=== PATIENT | female | born 1935 | race African-American/Black ===

== ENCOUNTER 2016-12-25 08:21 | Day surgery (SDC) | payer MEDICARE, OTHER ==
[2016-12-25] VITALS (12 sets, daily range): BP systolic 141–203; BP diastolic 64–88; PULSE 49–64; TEMP 96.8
[~2016-12-25] VITALS: Ht 162.6 cm; Wt 103.0 kg
[~2016-12-25 08:21] MED LIST: ALDACTONE 25MG25 M1 PO; BENICAR40 MG PO; BYSTOLIC20 MG PO; HYDRALAZINE HC100 MG PO; NORCO 325 MG-51 TAB PO; PRAVACHOL 40MG40 MG PO; PRILOSEC 20MG20 MG PO; VITAMIN B121000 MC2 PO; VITAMIN B610 MG PO
[2016-12-25 08:56] LABS: HEMATOCRIT 49.2 % (37.0-47.0); HEMOGLOBIN 15.8 g/dl (12.5-16.0); MEAN CELL VOLUME 89 fl (80.0-100.0); MEAN CORPUSCULAR HEMOGLOBIN 29 pg (27.0-31.0); MEAN CORPUSCULAR HGB CONC 32 g/dl (33.0-37.0); MEAN PLATELET VOLUME 10.5 fl (7.4-10.4); PLATELET COUNT 241 K/mm3 (130-400); RED BLOOD COUNT 5.55 M/mm3 (4.10-5.30); REDCELL DISTRIBUTION WIDTH-CV 14.8 % (11.5-14.5); WHITE BLOOD COUNT 9.9 K/mm3 (4.8-10.8)
[2016-12-25 08:59] LABS: CALCIUM 10.3 mg/dL (8.4-10.2); CREATININE, serum 0.97 mg/dL (0.52-1.25); POTASSIUM 3.7 mmol/L (3.4-5.0)
[2016-12-25] MEDS ORDERED: ZYLOPRIM 300MG300 MG PO (08:59)
[2016-12-25] MEDS ORDERED: CATAPRES-TTS 20.2 M1 TD (09:00)
[2016-12-25] MEDS ORDERED: COLCRYS0.6 MG PO (09:01)
[2016-12-25 09:02] LABS: INR 1.1 (0.8-3.0); PROTHROMBIN TIME 12.7 SECONDS (9.7-12.8)
[2016-12-25] MEDS ORDERED: TOPROL XL100 MG PO (09:02)
[2016-12-25] MEDS ORDERED: MIRALAX PA17 GM/Dose PO (09:03)
[2016-12-25] MEDS ORDERED: ALDACTONE 25MG25 M1 PO (09:04)
[2016-12-25] MEDS ORDERED: ERGOCALCIFER50000 IU PO (09:06)
[2016-12-25] MEDS ORDERED: ASPIRIN 81M81 MG/TA2 PO (09:07)
[2016-12-25] MEDS ORDERED: NORVASC 10MG10 MG PO (14:51)
== END 2016-12-25 16:52 | disposition home or self-care (01) ==
LOC: EUO 08:21
PROVIDERS: Internal Medicine Cardiovascular Disease
DX: I25.10 Atherosclerotic heart disease of native coronary artery without angina pectoris (principal); I08.3 Combined rheumatic disorders of mitral, aortic and tricuspid valves; I27.2 Other secondary pulmonary hypertension; R94.39 Abnormal result of other cardiovascular function study; R07.89 Other chest pain; E78.5 Hyperlipidemia, unspecified; K21.9 Gastro-esophageal reflux disease without esophagitis; M10.9 Gout, unspecified; I10 Essential (primary) hypertension; G47.33 Obstructive sleep apnea (adult) (pediatric); K58.9 Irritable bowel syndrome, unspecified; Z86.718 Personal history of other venous thrombosis and embolism; M19.90 Unspecified osteoarthritis, unspecified site; Z79.899 Other long term (current) drug therapy
CPT/HCPCS: C1760; J2250; J3010; Q9967

== ENCOUNTER → 2017-01-31 | Outpatient (CLI) | payer MEDICARE, OTHER ==
[~2017-01-31] MED LIST changes: +ASPIRIN 81M81 MG/TA2 PO; +BACTRIM DS 8001 TAB PO; +CATAPRES-TTS 20.2 M1 TD; +CEPHALEXIN500 M1 PO; +COLCRYS0.6 MG PO; +DOXYCYCLINE HY100 MG PO; +ELIQUIS 2.5 PO; +ERGOCALCIFER50000 IU PO; +LOTRISONE 0.05%1 CRE TOP; +MIRALAX PA17 GM/Dose PO; +NORVASC 10MG10 MG PO; +TOPROL XL100 MG PO; +TOPROL XL200 MG PO; +TRIAMCINOLONE A15 G3 TP; +ZYLOPRIM 300MG300 MG PO
== END ==
LOC: COL.RAD 08:53
DX: I51.7 Cardiomegaly (principal); R06.02 Shortness of breath
CPT/HCPCS: A9539; A9540

== ENCOUNTER → 2017-02-06 | Outpatient (CLI) | payer MEDICARE, OTHER | LOC: COL.PUL 08:00 | DX: R06.02 Shortness of breath (principal) ==

== ENCOUNTER 2017-02-23 21:41 | Emergency (ER) | payer MEDICARE, OTHER ==
[~2017-02-23] VITALS: Ht 160 cm; Wt 100.0 kg
[~2017-02-23 21:41] MED LIST changes: -BACTRIM DS 8001 TAB PO; -CEPHALEXIN500 M1 PO; -DOXYCYCLINE HY100 MG PO; -ELIQUIS 2.5 PO; -LOTRISONE 0.05%1 CRE TOP; -TOPROL XL200 MG PO; -TRIAMCINOLONE A15 G3 TP
[2017-02-23 21:42] VITALS: TEMP 98.5
[2017-02-23 22:23] LABS: BASO # 0.1 (0.0-0.2); BASO % 0.5 % (0.0-2.0); EOS # 0.1 (0.0-0.7); EOS % 0.9 % (0-4.0); GRAN # 7.7 (1.4-6.5); GRAN % 71.7 % (42.2-75.2); HEMATOCRIT 40.9 % (37.0-47.0); HEMOGLOBIN 13.3 g/dl (12.5-16.0); LYMPH # 1.7 (1.2-3.4); LYMPH % 15.9 % (20.0-51.0); MEAN CELL VOLUME 87 fl (80.0-100.0); MEAN CORPUSCULAR HEMOGLOBIN 28 pg (27.0-31.0); MEAN CORPUSCULAR HGB CONC 33 g/dl (33.0-37.0); MEAN PLATELET VOLUME 10.3 fl (7.4-10.4); MONO # 1.1 (0.1-0.6); MONO % 9.9 % (1.7-9.3); PLATELET COUNT 211 K/mm3 (130-400); REDCELL DISTRIBUTION WIDTH-CV 15.1 % (11.5-14.5); WHITE BLOOD COUNT 10.8 K/mm3 (4.8-10.8)
[2017-02-23 22:39] LABS: ADJUSTED CALCIUM 9.7 mg/dL (8.4-10.2); ALBUMIN 3.9 gm/dL (3.5-5.0); BILIRUBIN,TOTAL 1.2 mg/dL (0.0-1.0); CALCIUM 9.6 mg/dL (8.4-10.2); CREATININE, serum 0.92 mg/dL (0.52-1.25); POTASSIUM 3.8 mmol/L (3.4-5.0); TOTAL PROTEIN 7.5 gm/dL (6.4-8.2)
[2017-02-23 22:42] LABS: ERYTHROCYTE SEDIMENTATION RATE 59 mm/hr (0-30)
[2017-02-23 22:52] LABS: C-REACTIVE PROTEIN 13.5 mg/dL (0.0-0.9)
[2017-02-23] MEDS ORDERED: DOXYCYCLINE HY100 MG PO (23:07)
[2017-02-23] MEDS ORDERED: CEPHALEXIN500 M1 PO (23:07)
[2017-02-23 23:28] VITALS: BP 148/69
[2017-02-23] MEDS ORDERED: LOTRISONE 0.05%1 CRE TOP (23:39)
[2017-02-23] MEDS ORDERED: TOPROL XL200 MG PO (23:41)
[2017-02-23] MEDS ORDERED: TRIAMCINOLONE A15 G3 TP (23:43)
[2017-02-24 00:09] VITALS: PULSE 78
== END 2017-02-24 00:09 | disposition home or self-care (01) ==
LOC: COL.ER 21:41
PROVIDERS: Emergency Medicine
DX: L03.116 Cellulitis of left lower limb (principal); I10 Essential (primary) hypertension; Z86.718 Personal history of other venous thrombosis and embolism
CPT/HCPCS: J0690

== ENCOUNTER 2017-02-28 10:55 | Inpatient (IN) | payer MEDICARE, OTHER ==
[~2017-02-28] VITALS: Ht 160 cm; Wt 108.9 kg
[~2017-02-28 10:55] MED LIST changes: +CEPHALEXIN500 M1 PO; +DOXYCYCLINE HY100 MG PO; +LOTRISONE 0.05%1 CRE TOP; +TOPROL XL200 MG PO; +TRIAMCINOLONE A15 G3 TP
[2017-02-28 11:07] VITALS: BP 135/92; PULSE 70; TEMP 97.8
[2017-02-28 13:30] LABS: HEMOGLOBIN 13.2 g/dl (12.5-16.0); MEAN CELL VOLUME 88 fl (80.0-100.0); MEAN CORPUSCULAR HEMOGLOBIN 28 pg (27.0-31.0); MEAN CORPUSCULAR HGB CONC 32 g/dl (33.0-37.0); MEAN PLATELET VOLUME 9.8 fl (7.4-10.4); PLATELET COUNT 305 K/mm3 (130-400); RED BLOOD COUNT 4.66 M/mm3 (4.10-5.30); REDCELL DISTRIBUTION WIDTH-CV 15.1 % (11.5-14.5); WHITE BLOOD COUNT 12.4 K/mm3 (4.8-10.8)
[2017-02-28 13:32] LABS: C-REACTIVE PROTEIN 4.2 mg/dL (0.0-0.9)
[2017-02-28 13:48] LABS: URIC ACID 5.9 mg/dL (2.5-6.2)
[2017-02-28 14:04] LABS: ERYTHROCYTE SEDIMENTATION RATE 42 mm/hr (0-30)
[2017-02-28 15:17] VITALS: BP 140/51; PULSE 75; TEMP 97.4
[2017-02-28 20:18] VITALS: BP 129/50; PULSE 73; TEMP 98.5
[2017-03-01] VITALS (7 sets, daily range): BP systolic 123–150; BP diastolic 44–74; PULSE 63–74; TEMP 97.8–98.3
[2017-03-01 00:31] LABS: PH 5 (5-8); URINE APPEARANCE Hazy; URINE BACTERIA None Seen /hpf; URINE BILIRUBIN Negative (NEGATIVE); URINE BLOOD Negative (NEGATIVE); URINE COLOR Yellow; URINE GLUCOSE Negative (NEGATIVE); URINE KETONE Negative (NEGATIVE); URINE UROBILINOGEN Negative (NEGATIVE)
[2017-03-02 03:47] VITALS: BP 138/60; PULSE 62; TEMP 97.9
[2017-03-02 08:28] VITALS: BP 155/73; PULSE 63; TEMP 97.5
[2017-03-02 09:41] LABS: HEMOGLOBIN 13.2 g/dl (12.5-16.0); MEAN CELL VOLUME 89 fl (80.0-100.0); MEAN CORPUSCULAR HEMOGLOBIN 28 pg (27.0-31.0); MEAN CORPUSCULAR HGB CONC 31 g/dl (33.0-37.0); MEAN PLATELET VOLUME 9.5 fl (7.4-10.4); PLATELET COUNT 354 K/mm3 (130-400); REDCELL DISTRIBUTION WIDTH-CV 15.1 % (11.5-14.5); WHITE BLOOD COUNT 14.3 K/mm3 (4.8-10.8)
[2017-03-02 09:44] LABS: ADD PATHOLOGY DIFF REVIEW NO
[2017-03-02 11:08] VITALS: BP 128/53; PULSE 67; TEMP 97.1
[2017-03-02 13:25] LABS: BAND 8 % (0-10); NEUTROPHILS 62 % (42.0-75.2); TOTAL CELLS COUNTED 100
[2017-03-02 16:01] VITALS: BP 146/59; PULSE 62; TEMP 98.6
[2017-03-02 20:50] VITALS: BP 136/48; PULSE 61; TEMP 97.5
[2017-03-03 00:03] VITALS: BP 143/52; PULSE 63; TEMP 97.7
[2017-03-03 03:59] VITALS: BP 125/52; PULSE 63; TEMP 97.8
[2017-03-03 07:11] VITALS: BP 146/65; PULSE 58; TEMP 97.5
[2017-03-03 13:12] VITALS: BP 165/62; PULSE 71; TEMP 97.4
[2017-03-03 15:34] VITALS: BP 139/52; PULSE 65; TEMP 98.4
[2017-03-03 21:58] VITALS: BP 154/44; PULSE 66; TEMP 98.2
[2017-03-04] VITALS (7 sets, daily range): BP systolic 117–152; BP diastolic 47–64; PULSE 56–66; TEMP 97–98.7
[2017-03-05 03:48] VITALS: BP 120/55; PULSE 57; TEMP 97.8
[2017-03-05 07:55] VITALS: BP 114/55; PULSE 58; TEMP 97.5
[2017-03-05 11:23] VITALS: BP 125/44; PULSE 102; TEMP 97.4
[2017-03-05 15:40] VITALS: BP 120/55; PULSE 99; TEMP 97.6
[2017-03-05 19:19] VITALS: BP 123/42; PULSE 62; TEMP 97.9
[2017-03-05 23:46] VITALS: BP 124/48; PULSE 64; TEMP 97.8
[2017-03-06 03:46] VITALS: BP 133/56; PULSE 61; TEMP 97.9
[2017-03-06 07:25] VITALS: BP 134/49; PULSE 60; TEMP 98.1
[2017-03-06] MEDS ORDERED: ELIQUIS 2.5 PO (10:11)
[2017-03-06] MEDS ORDERED: CEPHALEXIN500 M1 PO (10:21)
[2017-03-06] MEDS ORDERED: BACTRIM DS 8001 TAB PO (10:22)
== END 2017-03-06 11:17 | disposition home or self-care (01) | DRG 603 ==
LOC: MEDICAL 10:55
PROVIDERS: Internal Medicine
DX: L03.116 Cellulitis of left lower limb (principal); Z68.41 Body mass index [BMI] 40.0-44.9, adult; Z86.718 Personal history of other venous thrombosis and embolism; I10 Essential (primary) hypertension; E53.8 Deficiency of other specified B group vitamins; E55.9 Vitamin D deficiency, unspecified; E66.9 Obesity, unspecified; I87.2 Venous insufficiency (chronic) (peripheral)
CPT/HCPCS: G0378; G0379; J0712; J2270; J2405

== ENCOUNTER → 2018-12-22 | Outpatient (CLI) | payer MEDICARE, OTHER ==
[~2018-12-22] MED LIST changes: +BACTRIM DS 8001 TAB PO; +ELIQUIS 2.5 PO
== END ==
LOC: COL.VAS 09:15
DX: I08.3 Combined rheumatic disorders of mitral, aortic and tricuspid valves (principal); I27.20 Pulmonary hypertension, unspecified

== ENCOUNTER → 2019-01-12 | Outpatient (CLI) | payer MEDICARE, OTHER | LOC: COL.PUL 12:56 | DX: I27.20 Pulmonary hypertension, unspecified (principal) ==

== ENCOUNTER → 2019-02-12 | Outpatient (CLI) | payer MEDICARE, OTHER | LOC: COL.VAS 13:27 | DX: Z13.6 Encounter for screening for cardiovascular disorders (principal); M79.89 Other specified soft tissue disorders ==

== ENCOUNTER → 2020-10-05 | Outpatient (CLI) | payer MEDICARE, OTHER | LOC: COL.PUL 13:00 | DX: R06.02 Shortness of breath (principal) ==